=== PATIENT | female | born 1955 | race African-American/Black ===

== ENCOUNTER 2016-11-26 21:23 | Emergency (ER) | payer BC ==
--- NOTE | ~2016-11-26 | CR126 ---
[facility] A Service of [facility] & [facility] RADIOLOGY TEXT RESULTS PATIENT: TIERRA BENNETT LOCATION: [facility] : 53 UNIT #: [id number] AGE: [address]: Aly Mueller MD SEX: F ORDER DR: [id number] [facility] [address] [place], [place] [address] [id number] E MR#: [id number] Acc #: [id number] NAME: TIERRA BENNETT. : 1955 SEX: F STUDY DATE/TIME: 11/26/2016 22:48 UNIT: [facility] ROOM: STUDY DESCRIPTION: CR Foot Complete Min 3 View Lt Attending Physician: Aly Mueller M.D. Ordering Physician: Aly Mueller M.D. Primary Care Physician: Stacie Landrum Aprn MEDICAL IMAGING REPORT This report is preliminary unless electronic signature is present EXAM Left foot INDICATION Left foot pain since yesterday. No known injury. FINDINGS The tarsal, metatarsal, and phalangeal elements are all anatomically normal in position and alignment. There are no articular defects. No fractures or radiopaque foreign bodies in the soft tissues are apparent. IMPRESSION Normal foot. Dictated by... Martin Soto M.D. THIS IS AN ELECTRONICALLY VERIFIED REPORT Martin Soto M.D. at 11/27/2016 1:53 PM LEONEL/radha TD: 11/27/2016 10:22 JOB #: [id number] MEDICAL IMAGING REPORT Page 1 of 1 COPY
[~2016-11-26 21:23] MED LIST: AMOXICILLIN500 M1 PO; AMOXICILLIN875 MG PO; ASPIRIN325 M1 PO; ASPIRIN81 M2 PO; ASPIRINEC PO; DOXAZOSIN MESYLA4 MG PO; FERRO-TIME325 MG PO; FISH OIL 1,0001 CAP PO; FISH OIL 1,001000 MG PO; FLAGYL250 MG INJ; GLIPIZIDE-METFO1 TA4 PO; GLIPIZIDE5 MG/BOTT1 PO; HYDRALAZINE HCL50 MG PO; HYDROCHLOROTHIA25 MG PO; JANUVIA PO; LASIX20 MG PO; LISINOPRIL-HCTZ1 T14 PO; LOPID600 MG PO; LOPRESSOR PO; LOPRESSOR100 MG PO; LOSARTAN POTAS100 MG PO; METAGLIP 2.5/501 TAB PO; METOPROLOL TAR100 MG PO; NORVASC10 MG PO; PANTOPRAZOLE SO40 MG PO; PROTONIX PO; ZESTORETIC 20/11 TAB PO
[2016-11-26 22:45] LABS: POC - CKMB <1.0 ng/mL (0.0-7.9); POC - TROPONIN <0.05 ng/mL (<=0.05)
[2016-11-26 22:49] LABS: BASOPHIL% 0.3 % (0-2.5); EOSINOPHIL% 0.2 % (0.0-7.0); HEMATOCRIT 34.2 % (35.0-45.0); HEMOGLOBIN 11.2 gm/dL (12.0-16.0); LYMPHOCYTE# 0.9 X10e3 (1.0-3.5); LYMPHOCYTE% 9.4 % (17.0-45.0); MEAN CELL VOLUME 87.3 FL (83-96); MEAN CORPUSCULAR HEMOGLOBIN 28.6 PG (28-34); MEAN CORPUSCULAR HGB CONC 32.8 g/dL (30-36); MONOCYTE% 9.7 % (3.0-12.0); NEUTROPHIL# 7.9 X10e3 (1.5-7.1); NEUTROPHIL% 80.4 % (40-75); PLATELET COUNT 183 X10e3 (140-420); RED BLOOD COUNT 3.91 X10e (3.90-5.30); WHITE BLOOD COUNT 9.8 X10e3 (4.0-10.5)
[2016-11-26 22:53] LABS: DIFF IND NO
[2016-11-26 23:30] LABS: ALBUMIN SERUM 3.8 g/dL (3.5-5.0); ALKALINE PHOSPHATASE 116 U/L (32-92); ALT (SGPT) 16 U/L (10-40); AST (SGOT) 22 U/L (10-42); BILIRUBIN,TOTAL 0.8 mg/dL (0.2-2.0); BLOOD UREA NITROGEN 31 mg/dL (9-23); BUN/CREATININE RATIO 18.23; CALCIUM SERUM 9.7 mg/dL (8.4-10.2); CARBON DIOXIDE 26 mmol/L (22-31); CHLORIDE 100 mmol/L (100-111); CREATININE SERUM 1.7 mg/dL (0.6-1.4); GLOM FILT RATE Estimated 36.8 mL/min (>60); GLUCOSE FASTING 147 mg/dL (70-110); POTASSIUM 3.5 mmol/L (3.5-5.1); PROTEIN TOTAL SERUM 8.6 g/dL (6.0-8.3); SODIUM 138 mmol/L (135-145); URIC ACID 10.7 mg/dL (2.6-7.2)
[2016-11-26 23:33] LABS: BILIRUBIN, DIRECT <0.1 mg/dL (0.0-0.2); BILIRUBIN,INDIRECT 0.7 mg/dL (0.0-0.9)
[2016-11-26 23:36] LABS: URINE SOURCE CLEAN CATCH
[2016-11-26 23:42] LABS: URINE APPEARANCE CLEAR; URINE BILIRUBIN NEG (NEG); URINE BLOOD NEG (NEG); URINE COLOR YELLOW; URINE GLUCOSE NEG (NEG); URINE KETONE NEG (NEG); URINE LEUKOCYTE ESTERASE 1+ (NEG); URINE NITRATE NEG (NEG); URINE PROTEIN NEG (NEG); URINE UROBILINOGEN 0.2 MG/DL (NEG)
[2016-11-26 23:48] LABS: CULTURE INDICATED? NO; U HYALINE CASTS AUWI 0-2 /[LPF]; URBCS1 AUWI 0-2 /[HPF] (0-2); URINE BACTERIA AUWI NEG (NEGATIVE); URINE SQUAMOUS EPITHELIAL CELL NONE SEEN /[HPF]
== END 2016-11-27 00:10 | disposition home or self-care (01) ==
LOC: CED 21:23
PROVIDERS: Emergency Medicine
DX: M10.9 Gout, unspecified (principal); I11.0 Hypertensive heart disease with heart failure; I50.9 Heart failure, unspecified; E11.9 Type 2 diabetes mellitus without complications
CPT/HCPCS: 73630; 80048; 80076; 81003; 82553; 82947; 84484; 84550; 85025; 87040; 96361; 96374; 99284; J2270

== ENCOUNTER 2016-11-30 15:40 | Emergency (ER) | payer BC ==
--- NOTE | ~2016-11-30 | EKG ---
PATIENT: TIERRA BENNETT UNIT #: [id number] Ventricular Rate: 89 BPM Atrial Rate: 89 BPM P-R Interval: 136 ms QRS Duration: 86 ms Q-T Interval: 380 ms QTC Calculation(Bezet): 462 ms P Pruden: 51 degrees Calculated R Pruden: 3 degrees Calculated T Pruden: 26 degrees Diagnosis Line: Normal sinus rhythm Diagnosis Line: Nonspecific ST abnormality Diagnosis Line: Abnormal ECG Diagnosis Line: When compared with ECG of 23-JUN-2015 09:06, Diagnosis Line: No significant change was found Diagnosis Line: Confirmed by KATLYN MCGRAW MD ([id number]) on Diagnosis Line: 12/02/2016 3:42:54 PM INTERPRETING MD: GAEB
--- NOTE | ~2016-11-30 | CR72 ---
[facility] A Service of [facility] & [facility] RADIOLOGY TEXT RESULTS PATIENT: TIERRA BENNETT LOCATION: [facility] : 53 UNIT #: [id number] AGE: [address]: Deandre Celis MD SEX: F ORDER DR: [id number] [facility] [address] [place], [place] [address] [id number] E MR#: [id number] Acc #: [id number] NAME: TIERRA BENNETT : 1955 SEX: F STUDY DATE/TIME: 11/30/2016 20:44 UNIT: [facility] ROOM: STUDY DESCRIPTION: CR Chest Single View Portable Attending Physician: Heena Judge M.D. Ordering Physician: Heena Judge M.D. Primary Care Physician: Stacie Landrum Aprn MEDICAL IMAGING REPORT This report is preliminary unless electronic signature is present EXAM Single view chest. INDICATION Shortness of air, cough, and wheezing. FINDINGS Single portable AP view of the chest compared to 06/23/2015. Heart and mediastinal contours are normal. Lungs are clear. No pleural effusion. IMPRESSION No acute cardiopulmonary findings. Dictated by... Charlie Schaefer M.D. THIS IS AN ELECTRONICALLY VERIFIED REPORT Charlie Schaefer M.D. at 12/01/2016 1:18 PM NANDO/janina TD: 11/30/2016 22:01 JOB #: [id number] MEDICAL IMAGING REPORT Page 1 of 1 COPY
--- NOTE | ~2016-11-30 | NM69 ---
[facility] A Service of [facility] & [facility] RADIOLOGY TEXT RESULTS PATIENT: TIERRA BENNETT LOCATION: [facility] : 53 UNIT #: [id number] AGE: [address]: Deandre Celis MD SEX: F ORDER DR: [id number] [facility] [address] [place], [place] [address] [id number] E MR#: [id number] Acc #: [id number] NAME: TIERRA BENNETT : 1955 SEX: F STUDY DATE/TIME: 11/30/2016 22:26 UNIT: [facility] ROOM: STUDY DESCRIPTION: NM Pulm Vent and Perf Attending Physician: Deandre Celis M.D. Ordering Physician: Heena Judge M.D. Primary Care Physician: Stacie Landrum Aprn MEDICAL IMAGING REPORT This report is preliminary unless electronic signature is present EXAM Ventilation-perfusion study of the lungs INDICATION Shortness of air, chest pressure beginning this afternoon. There is a comparison chest x-ray from today. FINDINGS The ventilation study was done with 36 mCi technetium 99m-DTPA in aerosol form and the perfusion study was done with 6 mCi technetium 99m-MAA. The ventilation and perfusion images are normal. IMPRESSION Normal ventilation and perfusion study of the lungs. Dictated by... Martin Soto M.D. THIS IS AN ELECTRONICALLY VERIFIED REPORT Martin Soto M.D. at 12/01/2016 5:56 AM LEONEL/cynthia TD: 11/30/2016 23:09 JOB #: [id number] MEDICAL IMAGING REPORT Page 1 of 1 COPY
[2016-11-30 16:27] LABS: BASOPHIL% 0.7 % (0-2.5); EOSINOPHIL# 0.1 X10e3 (0-0.7); EOSINOPHIL% 1.4 % (0.0-7.0); HEMATOCRIT 31.8 % (35.0-45.0); HEMOGLOBIN 10.5 gm/dL (12.0-16.0); LYMPHOCYTE# 0.9 X10e3 (1.0-3.5); LYMPHOCYTE% 17.4 % (17.0-45.0); MEAN CELL VOLUME 85.8 FL (83-96); MEAN CORPUSCULAR HEMOGLOBIN 28.4 PG (28-34); MEAN CORPUSCULAR HGB CONC 33.1 g/dL (30-36); MEAN PLATELET VOLUME 7.8 FL (6.5-11.5); MONOCYTE# 0.7 X10e3 (0-1.0); MONOCYTE% 12.5 % (3.0-12.0); NEUTROPHIL# 3.6 X10e3 (1.5-7.1); PLATELET COUNT 175 X10e3 (140-420); RED CELL DISTRIBUTION WIDTH 13.6 % (11.0-15.5); WHITE BLOOD COUNT 5.3 X10e3 (4.0-10.5)
[2016-11-30 16:28] LABS: DIFF IND NO
[2016-11-30 16:51] LABS: ALBUMIN SERUM 3.6 g/dL (3.5-5.0); BILIRUBIN, DIRECT 0.1 mg/dL (0.0-0.2); BILIRUBIN,INDIRECT 0.2 mg/dL (0.0-0.9); BILIRUBIN,TOTAL 0.3 mg/dL (0.2-2.0); BUN/CREATININE RATIO 26.19; CALCIUM SERUM 9.4 mg/dL (8.4-10.2); CREATININE SERUM 2.1 mg/dL (0.6-1.4); GLOM FILT RATE Estimated 28.5 mL/min (>60); POTASSIUM 3.6 mmol/L (3.5-5.1); PROTEIN TOTAL SERUM 8.4 g/dL (6.0-8.3)
[2016-11-30 19:14] LABS: POC - CKMB <1.0 ng/mL (0.0-7.9); POC - TROPONIN <0.05 ng/mL (<=0.05)
== END 2016-11-30 23:45 | disposition home or self-care (01) ==
LOC: CED 15:40
DX: R06.02 Shortness of breath (principal)
CPT/HCPCS: 36415; 71010; 78582; 80048; 80076; 82553; 83880; 84484; 85025; 85379; 93005; 99285; A9540; A9567

== ENCOUNTER → 2016-12-12 | Outpatient (CLI) | payer BC ==
--- NOTE | ~2016-12-12 | MY29 ---
[facility] A Service of [facility] & [facility] RADIOLOGY TEXT RESULTS PATIENT: TIERRA BENNETT LOCATION: [facility] : 53 UNIT #: [id number] AGE: [address]: STACIE ANTUNEZ APRN SEX: F ORDER DR: [id number] [facility] [address] [place], [place] [address] [id number] O MR#: [id number] Acc #: [id number] NAME: TIERRA BENNETT : 1955 SEX: F STUDY DATE/TIME: 12/12/2016 10:49 UNIT: [facility] ROOM: STUDY DESCRIPTION: MY SILVINA SCREENING W/ CAD BILAT Attending Physician: Stacie Antunez Aprn Referring Physician: Stacie Antunez Aprn Ordering Physician: Stacie Antunez Aprn Primary Care Physician: Stacie Antunez Aprn MEDICAL IMAGING REPORT This report is preliminary unless electronic signature is present EXAM Digital screening mammogram 12/12/2016 HISTORY 60-year-old woman, no risk elevation. Interim stereotactic-guided left breast biopsy, calcifications, benign 01/20/2016. FINDINGS Digital imaging of each breast was completed utilizing screening protocol. Review includes FDA-approved CAD device. Breast parenchyma is predominantly fatty replaced. Remaining microcalcifications are stable upper outer quadrant left breast. Image-guided biopsy marker unchanged in its location. Vascular calcification noted bilaterally. There is no interval occurring mass. There are no new or suspicious microcalcifications and no architectural deformity. IMPRESSION Benign mammogram. Annual screening recommended. BIRADS II Patients over the age of 40 are entered into a reminder system with target due date for the next mammogram. A result letter will also be sent to the patient. BIRADS: 2 - Benign finding Dictated by... Aly Lees M.D. THIS IS AN ELECTRONICALLY VERIFIED REPORT Aly Lees M.D. at 12/13/2016 8:10 AM Gudelia TD: 12/12/2016 16:07 [facility] A Service of [facility] & [facility] RADIOLOGY TEXT RESULTS PATIENT: TIERRA BENNETT LOCATION: [facility] #: [id number] : 51 UNIT #: [id number] AGE: [address]: STACIE ANTUNEZ APRN SEX: F ORDER DR: HANY #: [id number] MEDICAL IMAGING REPORT Page 1 of 1 COPY
== END | disposition home or self-care (01) ==
LOC: CWCC 10:20
DX: Z12.31 Encounter for screening mammogram for malignant neoplasm of breast (principal); Z98.890 Other specified postprocedural states
CPT/HCPCS: G0202